=== PATIENT | male | born 1990 | race Caucasian/White ===

== ENCOUNTER 2021-04-18 14:47 | Emergency (ER) | payer BC, SELFPAY ==
[2021-04-18 14:56] VITALS: BP 147/81; PULSE 62; RESP 16; TEMP 36.8; O2SAT 100
--- NOTE | 2021-04-18 15:15 | ED.SKABFB ---
HPI - Skin/Abscess/Foreign Bdy General Chief complaint: Skin/Abscess/Foreign Body Stated complaint: Belly Button has bleeding and odor Time Seen by Provider: 04/18/21 15:15 Source: patient Mode of arrival: ambulatory Limitations: no limitations History of Present Illness HPI narrative: Chris Singer is a 31 yo male with tenderness of belly button that started this morning. Used Q tip to clean it this morning and found a small amount of blood on Q-tip Patient had melanoma resection in February for mole on the right parietal area of scalp that had metastasis into 4 of 10 lymph nodes. Patient is scheduled to start immunotherapy in a week and a half and he is very concerned about making sure that he has no other infection at the time he starts this. 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 EYES: Denies visual changes, redness, discharge. ENT: Denies rhinorrhea, congestion, sore throat, otalgia. CARDIOVASCULAR: Denies chest pain, palpitations, edema. RESPIRATORY: Denies dyspnea, wheezing, cough GASTROINTESTINAL: Denies abdominal pain, nausea, vomiting, diarrhea. GENITOURINARY: Denies dysuria, hematuria, abnormal discharge SKIN: Denies rash or itching. Drainage from bellybutton is cultured NEUROLOGIC: Denies numbness, or focal weakness. PSYCHIATRIC: Denies anxiety or depression. [facility] Past Medical History Medical History (Updated 04/18/21 @ 15:39 by Natalie Stoner CNP) Melanoma MRSA (methicillin resistant Staphylococcus aureus) Surgical History Surgical History (Updated 04/18/21 @ 15:34 by Natalie Stoner CNP) H/O melanoma excision Family History Family History Other No acute medical problems Social History Social History (Updated 04/18/21 @ 15:35 by Natalie Stoner CNP) Smokeless tobacco user: other Alcohol intake: current Comments At time of signature, I agree with nursing past medical, surgical, social and family history. There is no relevant family history pertinent to the presenting complaint. Blood pressure is elevated today. Needs to follow-up with PCP Exam Narrative: Exam Narrative: GENERAL: This is a well-nourished, well-developed patient, in mild distress. HEAD: normocephalic, atraumatic. EYES: Sclera clear/white. Vision is grossly intact. EARS: External ears normal, large skin scar from parietal right side down to the front of the ear to parotid gland. Hearing grossly intact. NOSE: External nose normal without nasal discharge, nares without redness, no rhinorrhea. THROAT: Mucous membranes moist, NECK: Neck supple, CARDIOVASCULAR: Regular rate and rhythm without murmurs, gallops, or rubs. RESPIRATORY: Clear to auscultation. Breath sounds equal bilaterally. No wheezes, rales, or rhonchi. GASTROINTESTINAL: Abdomen soft, small amount of drainage from umbilicus, SKIN: warm, intact with no suspicious lesions or rash, good texture and turgor. NEURO: awake, alert, and oriented to person, place and time. There were no obvious focal neurologic abnormalities. Steady gait EXTREMITIES: Normal range of motion. BACK: Nontender without deformity Course Course Emergency Course: Patient here for evaluation of drainage from umbilicus this morning, he is currently undergoing immunotherapy for melanoma Culture taken and sent Started on Keflex Follow-up with primary care physician for lower care and blood pressure check Vital Signs Vital signs: Vital Signs Temperature 98.3 F 04/18/21 14:56 Pulse Rate 62
== END 2021-04-18 15:42 | disposition home or self-care (01) ==
PROVIDERS: Emergency Provider Nurse Practitioner; PCP Otolaryngology
DX: S31.105A Unspecified open wound of abdominal wall, periumbilic region without penetration into peritoneal cavity, initial encounter (principal); X58.XXXA Exposure to other specified factors, initial encounter; Z86.14 Personal history of Methicillin resistant Staphylococcus aureus infection; F17.200 Nicotine dependence, unspecified, uncomplicated; Z85.820 Personal history of malignant melanoma of skin; Z85.72 Personal history of non-Hodgkin lymphomas
CPT/HCPCS: 87070; 87205; 99213; G0463

== ENCOUNTER 2023-04-23 08:49 | Emergency (ER) | payer BC, SELFPAY ==
[2023-04-23 08:54] VITALS: BP 137/74; PULSE 65; RESP 20; TEMP 36.6; O2SAT 100
--- NOTE | 2023-04-23 09:11 | ED.DENTAL ---
HPI - Dental/Oral General Chief complaint: Dental/Oral Stated complaint: mouth inf Time Seen by Provider: 04/23/23 09:00 Source: patient Mode of arrival: ambulatory Limitations: no limitations History of Present Illness HPI Narrative: Chris is a 33-year-old male patient presenting to the clinic today with complaints of a possible mouth infection. He reports over the last week he has had burning, tingling, and stinging sensation inside his mouth. He reports he feels as though his gums and cheeks are swollen. Also reports this morning he developed right-sided pain over the TMJ. History of melanoma incision to the right side of his neck/head. Has finished his chemo/radiation and immuno therapy. States he has a scan and blood work scheduled for April 26, 2023. He denies any fever, chills, weight loss, headache, or visual changes. Denies any dental pain or sore throat. No pain with swallowing. Related Data Allergies Allergy/AdvReac Type Severity Reaction Status Date / Time cefaclor Allergy Intermediate Hives Verified 04/23/23 09:04 vancomycin Allergy Intermediate Itching Verified 04/23/23 09:04 Review of Systems Review of Systems: Pertinent positives per HPI. Patient denies any fever, chills, rash, headache, visual changes, dizziness, cough, runny nose, sore throat, shortness of breath, chest pain, palpitations, nausea, vomiting, diarrhea, constipation, abdominal pain, or any urinary issues. [facility] Past Medical History Medical History (Updated 04/23/23 @ 09:19 by Zaire Spencer APRN) Melanoma MRSA (methicillin resistant Staphylococcus aureus) Surgical History Surgical History H/O melanoma excision Family History Family History Other No acute medical problems Social History Social History Smokeless tobacco user: other Alcohol intake: current Comments At the time of my signature, I reviewed and agree with the nursing past medical, surgical, social, and family history. There is no relevant family history pertinent to the patient complaint. Exam Narrative: General: Well-developed, well nourished, in no apparent distress Head: Normocephalic, atraumatic Eyes: Pupils equally round and reactive to light bilaterally, EOM intact, sclera and conjunctive clear, no discharge, lids normal Ears: TMs intact and clear, ear canals clear, no drainage, grossly hearing normal. Nose: Nares patent, no discharge, no inflammation, no sinus tenderness. Mouth: Oropharynx red without visible lesions or masses, poor dentition, no dental pain to palpation, MMM. Tenderness to palpation over the right-sided TMJ Neck: Supple, trachea midline, no enlargement of anterior or posterior cervical nodes, no thyroid masses or goiter palpable. Cardio: Regular rate and rhythm, s1 and s2 normal, no murmur appreciated. Resp: Clear to auscultation bilaterally anteriorly and posteriorly, no rhonchi, rales, wheezing or rubs Course Course Emergency Course: Portions of this record may have been created with voice recognition software. Level of Care: Express Care Visit Vital Signs Vital signs: Vital Signs Temperature 36.6 C 04/23/23 08:54 Pulse Rate 65 04/23/23 08:54 Respiratory Rate 20 04/23/23 08:54 Blood Pressure 137/74 04/23/23 08:54 Pulse Oximetry 100 04/23/23 08:54 Oxygen Delivery Room Air 04/23/23 08:54 Temperature 36.6 C 04/23/23 08:54 Pulse Rate 65 04/23/23 08:54 Respiratory Rate 20 04/23/23 08:54 Blood Pressure 137/74 04/23/23 08:54 Pulse Oximetry 100 04/23/23 08:54 Oxygen Delivery Room Air 04/23/23 08:54 Vital signs reviewed MDM - Dental/Oral MDM Narrative Medical decision making narrative: At the time of visit patient is resting comfortably on the exam table. No oral thrush a v
== END 2023-04-23 09:23 | disposition home or self-care (01) ==
PROVIDERS: Emergency Provider Nurse Practitioner Family
DX: K13.79 Other lesions of oral mucosa (principal); M26.621 Arthralgia of right temporomandibular joint; Z85.820 Personal history of malignant melanoma of skin; Z92.21 Personal history of antineoplastic chemotherapy; Z92.3 Personal history of irradiation; Z86.14 Personal history of Methicillin resistant Staphylococcus aureus infection
CPT/HCPCS: 99213; G0463

== ENCOUNTER 2024-02-10 12:24 | Emergency (ER) | payer BC, SELFPAY ==
--- NOTE | ~2024-02-10 | XR_ITS ---
XR toe 5th RT min 2V 02/10/2024 12:56 Indication: Right fifth toe pain Procedure: 4 views right fifth toe Comparison: No prior studies Findings: No fracture, subluxation or dislocation. No significant soft tissue abnormality. No foreign bodies. Impression: 1: No acute bone or joint abnormality. Reviewed, dictated and finalized at location B. Impression: 1: No acute bone or joint abnormality.
[2024-02-10 12:40] VITALS: BP 141/73; PULSE 50; RESP 16; TEMP 36.3; O2SAT 100
--- NOTE | 2024-02-10 13:11 | ED.LOWEXIN ---
HPI - Extremity Injury (Lower) General Chief Complaint: Extremity Injury, Lower Stated Complaint: Right foot pinky toe injury Source: patient Mode of arrival: ambulatory Limitations: no limitations History of Present Illness HPI Narrative: 33-year-old male presented for complaint of right little toe pain for 1 week Following an injury. He states while doing martial arts the foot came down and the toe bent underneath the foot, and he heard a pop and crackle. Endorses bruising and swelling spreading towards the great toe. Continues to walk without difficulty. Denies deformity. Related Data Home Medications Medication Instructions Recorded Confirmed No Home Medications 02/10/24 02/10/24 Allergies Allergy/AdvReac Type Severity Reaction Status Date / Time cefaclor Allergy Intermediate Hives Verified 04/23/23 09:04 vancomycin Allergy Intermediate Itching Verified 04/23/23 09:04 Review of Systems Review of Systems: CONSTITUTIONAL: Denies body aches, fever, chills CARDIOVASCULAR: Denies chest pain, palpitations, or edema. RESPIRATORY: Denies cough or dyspnea. SKIN: Denies rash, itching, or wounds. MUSCULOSKELETAL: Reports toe pain NEUROLOGIC: Denies headache, numbness, tingling, or weakness. All systems reviewed & are unremarkable except as noted in HPI and below PMFSH Past Medical History Medical History Melanoma MRSA (methicillin resistant Staphylococcus aureus) Surgical History Surgical History H/O melanoma excision Family History Family History Other No acute medical problems Social History Social History Smokeless tobacco user: other Alcohol intake: current Comments At time of signature, I have reviewed and agree with nursing past medical, surgical, social and family history unless otherwise noted. Please see nursing chart for further information. There is no relevant family history pertinent to the presenting complaint Exam Narrative: GENERAL: Well-appearing CHEST: Speaks in full sentences. No respiratory distress. HEART: Regular rate and rhythm. Normal and equal peripheral pulses. EXTREMITIES: Right little toe tender with palpation at the MTP joint space, foot/toe has normal strength and sensation, normal range of motion. Bruising green in color over 2--4th toes. No swelling. No open wounds, or obvious deformity; alignment normal, pulse palpable and equal bilaterally, skin warm, dry, pink. Capillary refill less than 3 seconds. SKIN: Warm, dry NEURO: Alert and oriented x3. PSYCH: Normal mood and affect Course Course Emergency Course: Patient is aware of diagnosis, understands and agrees to treatment plan. Anticipatory guidance given. Patient agrees to follow-up as directed and is aware of reasons to seek care at the emergency department. Portions of this record may have been created with voice recognition software Level of Care: Express Care Visit Vital Signs Vital signs: Vital Signs Temperature 97.3 F L 02/10/24 12:40 Pulse Rate 50 L 02/10/24 12:40 Respiratory Rate 16 02/10/24 12:40 Blood Pressure 141/73 H 02/10/24 12:40 Pulse Oximetry 100 02/10/24 12:40 Oxygen Delivery Room Air 02/10/24 12:40 Temperature 97.3 F L 02/10/24 12:40 Pulse Rate 50 L 02/10/24 12:40 Respiratory Rate 16 02/10/24 12:40 Blood Pressure 141/73 H 02/10/24 12:40 Pulse Oximetry 100 02/10/24 12:40 Oxygen Delivery Room Air 02/10/24 12:40 Reviewed MDM - Extremity Injury (Lower) MDM Narrative Medical decision making narrative: Discussed physical exam findings and results of x-ray. Declined postop shoe.. Advised supportive measures and signs/symptoms to go to the ER. Pt is appropriate for outpt treatment and f/u. Differential Diagnosi
== END 2024-02-10 13:24 | disposition home or self-care (01) ==
PROVIDERS: Emergency Provider Nurse Practitioner Family
DX: M79.674 Pain in right toe(s) (principal); Z85.820 Personal history of malignant melanoma of skin; Z86.14 Personal history of Methicillin resistant Staphylococcus aureus infection
CPT/HCPCS: 73660; 99213; G0463